=== PATIENT | male | born 1985 | race Caucasian/White ===

== ENCOUNTER → 2019-02-16 | Outpatient (REF) | payer SELFPAY | LOC: M LABDRAW1 15:48 | PROVIDERS: ATTEND Physician Assistant | DX: R52 Pain, unspecified (principal) ==

== ENCOUNTER → 2021-01-01 | Outpatient (REF) | payer BC ==
[2021-01-01 18:28] LABS: BLOOD UREA NITROGEN 14 MG/DL (7-18); CALCIUM LEVEL 9.3 MG/DL (8.5-10.1); CARBON DIOXIDE LEVEL 30 MEQ/L (21-32); CHLORIDE LEVEL 105 MEQ/L (98-107); CREATININE FOR GFR 0.92 MG/DL (0.70-1.30); GLOMERULAR FILTRATION RATE > 60.0 (>60); GLUCOSE, FASTING 84 MG/DL (70-100); POTASSIUM SERUM 3.9 MEQ/L (3.5-5.1); SODIUM LEVEL 141 MEQ/L (136-145)
[2021-01-01 18:43] LABS: BASO # 0.1 10^3/uL (0.0-0.2); BASO % 0.7 % (0.0-1.0); EOS # 0.2 10^3/uL (0.0-0.5); EOS % 2.3 % (0.0-3.0); HEMATOCRIT 44.3 % (42.0-52.0); HEMOGLOBIN 14.8 g/dl (13.5-17.5); LYMPH # 2.4 10^3/uL (1.5-5.0); LYMPH % 34.1 % (24.0-44.0); MEAN CORPUSCULAR HEMOGLOBIN 28.5 pg (27.0-33.0); MEAN CORPUSCULAR HGB CONC 33.4 g/dl (32.0-36.5); MEAN CORPUSCULAR VOLUME 85.4 fl (80.0-96.0); MONO # 0.6 10^3/uL (0.0-0.8); MONO % 9.1 % (0.0-8.0); NEUTROPHILS # 3.8 10^3/uL (1.5-8.5); NEUTROPHILS % 53.4 % (36.0-66.0); PLATELET COUNT, AUTOMATED 343 10^3/uL (150-450); RED BLOOD COUNT 5.19 10^6/uL (4.30-6.10); WHITE BLOOD COUNT 7.1 10^3/uL (4.0-10.0)
== END ==
LOC: M LABWUC 15:44 → M LAB REF 15:44
PROVIDERS: ATTEND Physician Assistant
DX: R10.32 Left lower quadrant pain (principal)

== ENCOUNTER → 2021-02-22 | Outpatient (CLI) | payer BC ==
[~2021-02-22] MED LIST: OXYC1TAB23; TAMS1CAP17
[2021-02-22 14:04] LABS: HEMATOCRIT 44.2 % (42.0-52.0); HEMOGLOBIN 14.9 g/dl (13.5-17.5); MEAN CORPUSCULAR HGB CONC 33.7 g/dl (32.0-36.5); PLATELET COUNT, AUTOMATED 314 10^3/uL (150-450); RED BLOOD COUNT 5.14 10^6/uL (4.30-6.10); WHITE BLOOD COUNT 6.5 10^3/uL (4.0-10.0)
[2021-02-22 14:11] LABS: APPEARANCE, URINE CLEAR (CLEAR); BACTERIA, URINE AUTO NEGATIVE (NEGATIVE); BILIRUBIN, URINE AUTO NEGATIVE (NEGATIVE); BLOOD, URINE BLOOD 1+ (NEGATIVE); COLOR, URINE YELLOW (YELLOW); GLUCOSE, URINE (UA) AUTO NEGATIVE (NEGATIVE); KETONE, URINE AUTO NEGATIVE (NEGATIVE); LEUKOCYTE ESTERASE, URINE AUTO NEGATIVE (NEGATIVE); MUCUS, URINE SMALL (NEGATIVE); NITRITE, URINE AUTO NEGATIVE (NEGATIVE); PROTEIN, URINE AUTO NEGATIVE (NEGATIVE); RBC, URINE AUTO 1 /HPF (0-3); SPECIFIC GRAVITY URINE AUTO 1.014 (1.002-1.035); SQUAMOUS EPITHELIAL CELL UR AU 0 /HPF (0-6); WBC, URINE AUTO 3 /HPF (0-3)
[2021-02-22 14:16] LABS: INR 1.06
[2021-02-22 14:17] LABS: PARTIAL THROMBOPLASTIN TIME 32.5 SECONDS (24.2-38.5)
[2021-02-22 14:34] LABS: BLOOD UREA NITROGEN 18 MG/DL (7-18); CALCIUM LEVEL 9.6 MG/DL (8.5-10.1); CARBON DIOXIDE LEVEL 30 MEQ/L (21-32); CHLORIDE LEVEL 106 MEQ/L (98-107); CREATININE FOR GFR 0.99 MG/DL (0.70-1.30); GLOMERULAR FILTRATION RATE > 60.0 (>60); GLUCOSE, FASTING 93 MG/DL (70-100); POTASSIUM SERUM 4.2 MEQ/L (3.5-5.1); SODIUM LEVEL 139 MEQ/L (136-145)
== END ==
LOC: M PLALAB 10:58
PROVIDERS: ATTEND Urology
DX: Z01.818 Encounter for other preprocedural examination (principal); N20.0 Calculus of kidney

== ENCOUNTER → 2021-02-25 | Outpatient (CLI) | payer BC | LOC: M LABSMTC 08:42 | PROVIDERS: ATTEND Anesthesiology | DX: Z01.812 Encounter for preprocedural laboratory examination (principal); Z20.822 Contact with and (suspected) exposure to COVID-19 ==

== ENCOUNTER 2021-03-02 07:48 | Day surgery (SDC) | payer BC ==
[~2021-03-02] VITALS: Ht 177.8 cm; Wt 93.9 kg
[~2021-03-02 07:48] MED LIST changes: +CIPROFLOXACIN 400 MG in IV 1 EA IV ONE; +CONRAY-60 60% 50ML VIAL (Q9961) As Ordered ONE; +LR 1,000 ML IV ONE
[2021-03-02] MEDS ORDERED: MIDAZOLAM INJ 2MG/2ML VIAL (J2250 PER 1MG) As Ordered ONE (09:16)
[2021-03-02] MEDS ORDERED: propofoL 200 MG/20 ML VIAL As Ordered ONE (09:16)
[2021-03-02] MEDS ORDERED: ONDANSETRON 4MG/2ML VIAL As Ordered ONE (09:16)
[2021-03-02] MEDS ORDERED: dexameTHASONE 4 MG/ML 1ML VIAL (J1100 PER 1MG) As Ordered ONE (09:16)
[2021-03-02] MEDS ORDERED: LIDOCAINE 2% 100MG/5ML SDV (FOR ANES.) As Ordered ONE (09:16)
[2021-03-02] MEDS ORDERED: fentaNYL 100 MCG/2 ML INJECTION (J3010) As Ordered ONE (09:17)
[2021-03-02] MEDS ORDERED: ACETAMINOPHEN 1000MG 100ML IV BTL (OFIRMEV) (J0131 PER 10MG) As Ordered ONE (10:03)
[2021-03-02] MEDS ORDERED: HYDROmorphone HCL 2 MG/ML 1ML VIAL (J1170) As Ordered ONE (10:09)
[2021-03-02] MEDS ORDERED: METOCLOPRAMIDE INJ 10MG/2ML VIAL (J2765 PER 1) As Ordered ONE (10:25)
--- NOTE | 2021-03-02 10:53 | REP ---
INDICATION: LEFT STENT PLACEMENT. COMPARISON: Comparison CT study January 01, 2021.. TECHNIQUE: Two views. 28 seconds of fluoroscopy time. FINDINGS: A sequence of 2 last image hold fluoroscopically obtained spot radiographs of the left abdomen document left ureteral cannulation, contrast injection, and double-pigtail ureteral stent placement. IMPRESSION: Procedural imaging. <Electronically signed by Pasha Spencer > 03/02/21 1040
[2021-03-02] MEDS ORDERED: fentaNYL 100 MCG/2 ML INJECTION (J3010) IV PRN (11:20)
[2021-03-02] MEDS ORDERED: PERCOCET 5MG/325MG TAB PO PRN (11:20)
[2021-03-02] MEDS ORDERED: oxyCODONE 5MG TAB PO PRN (11:20)
[2021-03-02] MEDS ORDERED: LR 1,000 ML IV SCH (11:20)
[2021-03-02] MEDS ORDERED: MEPERIDINE INJ 25 MG/ML VIAL (J2175) IV PRN (11:20)
[2021-03-02] MEDS ORDERED: ONDANSETRON 4MG/2ML VIAL IV PRN (11:20)
[2021-03-02] MEDS ORDERED: METOCLOPRAMIDE INJ 10MG/2ML VIAL (J2765 PER 1) IV PRN (11:20)
--- NOTE | 2021-03-02 11:41 | RO ---
OPERATIVE NOTE DATE OF OPERATION: 03/02/2021 PREOPERATIVE DIAGNOSIS: Left kidney stone. POSTOPERATIVE DIAGNOSIS: Left kidney stone. PROCEDURE: Cystoscopy, left ureteroscopy with laser lithotripsy and basket extraction of stones, left ureteral balloon dilation, left retrograde pyelogram with intraop interpretation of images, left ureteral stent placement. SURGEON: Femi Hernandez MD JUNIOR ACCOUNTANT BOOKKEEPER: None. ANESTHESIA: General. OPERATIVE INDICATIONS: This is a 36-year-old male who was found to have an approximately 1.2 cm left renal pelvis stone. He was brought to the operating room today for treatment. DESCRIPTION OF PROCEDURE: The patient was brought to the operating room and general anesthesia was induced. Prophylactic antibiotics were infused. He was placed in dorsal lithotomy position and prepped and draped in usual sterile fashion. A rigid cystoscope was inserted in the urethral meatus and advanced into the bladder. A guidewire was advanced into the left collecting system. I then advanced a ureteral access sheath up the left collecting system. I went up the access sheath with a flexible ureteroscope and of note the proximal ureter was too narrow to traverse the ureteroscope. I therefore utilized a balloon dilator to dilate the proximal ureter to 12-Tanzanian. This was done in about three different areas. Once that was done the balloon dilator was removed and I was able to advance the flexible ureteroscope into the kidney. At the level of the ureteropelvic junction the stone was seen. I then utilized a 272 micron laser fiber to fragment the stone into smaller pieces. All the larger fragments were removed using a basket. Any remaining stone fragments were tiny enough to pass on their own. Once satisfied that all the large stone fragments had been removed a retrograde pyelogram was performed and was notable for moderate left hydronephrosis without extravasation. At this point the ureteroscope was removed along with the access sheath and no additional stones were seen. I utilized a guidewire to advance a 6-Tanzanian x 22-32 cm JJ ureteral stent up to the left collecting system. The wire was removed and there were adequate curls of the stent in left renal pelvis and bladder. The bladder was emptied of all fluids and this marked the conclusion of the procedure. The patient was taken out of the dorsal lithotomy position, awakened from anesthesia and transferred to recovery room in stable condition. ESTIMATED BLOOD LOSS: 10 mL. COMPLICATIONS: None. SPECIMENS: Kidney stone fragments. PLAN: The patient will follow up in urology clinic in a few weeks for stent removal. YASH
[2021-03-02 12:55] VITALS: BP 124/66
== END 2021-03-02 12:55 | disposition home or self-care (01) ==
LOC: M SDC 07:48
PROVIDERS: ATTEND Urology
DX: N20.0 Calculus of kidney (principal); Z87.442 Personal history of urinary calculi; Z88.0 Allergy status to penicillin; Z79.899 Other long term (current) drug therapy; Z79.891 Long term (current) use of opiate analgesic
CPT/HCPCS: 52356; 74420; 82365; 88300; C1769; C1894; C2617; J0131; J0744; J1100; J1170; J2250; J2405; J2765; J3010; Q9961

== ENCOUNTER → 2021-09-10 | Outpatient (CLI) | payer BC ==
[~2021-09-10] MED LIST changes: -CIPROFLOXACIN 400 MG in IV 1 EA IV ONE; -CONRAY-60 60% 50ML VIAL (Q9961) As Ordered ONE; -LR 1,000 ML IV ONE
--- NOTE | 2021-09-10 10:37 | REP ---
INDICATION: ACHILLES TENDINITIS. COMPARISON: None. TECHNIQUE: Two views FINDINGS: There is no acute fracture or destructive osseous lesion. There is no evidence of a heel spur. IMPRESSION: No bony abnormality. If Achilles tendon evaluation is of clinical concern then an MRI is recommended. <Electronically signed by Desmond Lawler > 09/10/21 1034
== END ==
LOC: M WUC 09:24
PROVIDERS: ATTEND Physician Assistant
DX: M76.61 Achilles tendinitis, right leg (principal)

== ENCOUNTER → 2021-10-26 | Outpatient (CLI) | payer BC | LOC: M LABSMTC 10:02 | PROVIDERS: ATTEND Pediatrics | DX: Z20.822 Contact with and (suspected) exposure to COVID-19 (principal) ==

== ENCOUNTER 2023-09-26 16:58 | Emergency (ER) | payer BC ==
[~2023-09-26] VITALS: Ht 177.8 cm; Wt 93.8 kg
[2023-09-26] MEDS ORDERED: BOOSTRIX VACCINE (TETANUS/DIPHTH/ACEL. PERTUSSIS) 0.5ML SYR IM ONE (22:15)
[2023-09-26] MEDS ORDERED: ceFAZolin SOD 1 GM in D5W MINI-BAG PLUS 50 ML IV ONE (22:15)
[2023-09-26] MEDS ORDERED: CEPH500C PO (23:05)
[2023-09-26] MEDS ORDERED: HYDR-4571 PO (23:05)
[2023-09-26] MEDS ORDERED: NORCO 5/325MG TABLET (HOME DOSE PACK) PO ONE (23:10)
[2023-09-27 00:31] VITALS: BP 130/77; TEMP 99.4; O2SAT 97
== END 2023-09-27 01:30 | disposition home or self-care (01) ==
LOC: M ED 16:58
DX: S62.663B Nondisplaced fracture of distal phalanx of left middle finger, initial encounter for open fracture (principal); S61.202A Unspecified open wound of right middle finger without damage to nail, initial encounter; W29.3XXA Contact with powered garden and outdoor hand tools and machinery, initial encounter; Y92.009 Unspecified place in unspecified non-institutional (private) residence as the place of occurrence of the external cause; Z88.0 Allergy status to penicillin
CPT/HCPCS: 73130; 90471; 90715; 96365; 96366; 99284; J0690

== ENCOUNTER → 2023-10-13 | Outpatient (CLI) | payer BC ==
[~2023-10-13] MED LIST changes: +CEPH500C PO; +HYDR-4571 PO
== END ==
LOC: M SOG 13:11
PROVIDERS: ATTEND Physician Assistant
DX: M79.644 Pain in right finger(s) (principal)

== ENCOUNTER → 2023-11-18 | Outpatient (CLI) | payer BC | LOC: M SOG 07:53 | PROVIDERS: ATTEND Physician Assistant | DX: M79.644 Pain in right finger(s) (principal) ==